=== PATIENT | male | born 1960 | race Caucasian/White ===

== ENCOUNTER 2017-04-05 17:44 | Emergency (ER) | payer MEDICAID ==
[~2017-04-05] VITALS: Ht 185.4 cm; Wt 95.3 kg
[2017-04-05 18:33] LABS: BASOPHILS % (AUTO) 1.2 % (0.0-2.0); EOSINOPHILS % (AUTO) 2.9 % (0.0-3.0); LYMPHOCYTES % (AUTO) 20.8 % (20.0-45.0); MEAN CORPUSCULAR HEMOGLOBIN 33.8 PG (27.0-31.0); MEAN CORPUSCULAR HGB CONC 35.8 G/DL (32.0-36.0); MEAN CORPUSCULAR VOLUME 95 FL (80-99); MEAN PLATELET VOLUME 5.3 FL (6.5-10.1); MONOCYTES % (AUTO) 6.6 % (1.0-10.0); NEUTROPHILS % (AUTO) 68.4 % (45.0-75.0); PLATELET COUNT 253 K/UL (150-450); RED BLOOD COUNT 4.71 M/UL (4.70-6.10); RED CELL DISTRIBUTION WIDTH 10.9 % (11.6-14.8); WHITE BLOOD COUNT 10.3 K/UL (4.8-10.8)
[2017-04-05 18:49] LABS: ACETAMINOPHEN < 10 ug/mL (10-30); ALANINE AMINOTRANSFERASE 15 U/L (3-41); ALBUMIN/GLOBULIN RATIO 1.6 (1.0-2.7); ALCOHOL < 10 mg/dL; ANION GAP 10 (5-15); ASPARTATE AMINO TRANSFERASE 15 U/L (5-40); CALCIUM 8.9 mg/dL (8.6-10.2); CARBON DIOXIDE 24 mEQ/L (20-30); CHLORIDE 101 mEQ/L (98-107); GLOMERULAR FILTRATION RATE > 60 mL/min (>60); HEMOLYSIS 11; POTASSIUM 3.7 mEQ/L (3.4-4.9); SODIUM 135 mEQ/L (135-145); TOTAL PROTEIN 6.8 g/dL (6.6-8.7)
[2017-04-05 18:57] VITALS: BP 121/84
[2017-04-05] MEDS ORDERED: Ketorolac 30mg Inj IV ONE (19:30)
--- NOTE | 2017-04-05 21:55 | Emergency Room Report ---
History of Present Illness General Chief Complaint: Behavioral Complaint Source: Medical Record, EMS (JAYLENE BANEGAS) Present Illness HPI The patient is a 56 yo M with a hx of bipolar disorder and schizophrenia presenting for feelings of depression. He states he stays at a local [facility] and [facility] facility and last saw his psychiatrist one week prior for routine follow up. He receives bi-monthly risperidone IM which he received at the visit last week. States that he is feeling loss and helpless. He denies using any drugs or alcohol. He denies hurting himself. He denies other symptoms including nausea, vomiting, fever, chills, shortness of breath, chest pain, dizziness (JAYLENE BANEGAS P.Kianna) Allergies: Coded Allergies: No Known Allergies (Unverified , 04/05/17) Patient History Past Medical History: see triage record Pertinent Family History: none Reviewed Nursing Documentation: PMH: Agreed, PSxH: Agreed (JAYLENE BANEGAS) Nursing Documentation-PMH Past Medical History: No History, Except For Hx Hypertension: Yes Hx Asthma: Yes Hx Diabetes: Yes History Of Psychiatric Problem: Yes (JAYLENE BANEGAS P.APhilomena) Review of Systems All Other Systems: negative except mentioned in HPI (JAYLENE BANEGAS P.APhilomena) Physical Exam Vital Signs Date Time Temp Pulse Resp B/P Pulse Ox O2 Delivery O2 Flow Rate FiO2 04/05/17 17:52 98.1 78 18 121/84 100 Room Air Sp02 EP Interpretation: reviewed, normal General Appearance: no apparent distress, alert, GCS 15, non-toxic Head: normocephalic, atraumatic Eyes: bilateral eye PERRL, bilateral eye normal inspection ENT: hearing grossly normal, normal pharynx, no angioedema, normal voice Neck: full range of motion, supple/symm/no masses Respiratory: chest non-tender, lungs clear, normal breath sounds, speaking full sentences Cardiovascular #1: regular rate, rhythm, no edema Musculoskeletal: back normal, gait/station normal, normal range of motion, non- tender, calf tenderness Neurologic: alert, oriented x3, responsive, motor strength/tone normal, sensory intact, speech normal Psychiatric: judgement/insight normal, memory normal, mood/affect normal, no suicidal/homicidal ideation Skin: normal color, no rash, warm/dry, well hydrated (JAYLENE BANEGAS) Medical Decision Making PA Attestation Dr. Riddle is my supervising physician. Patient management was discussed with my supervising physician (JAYLENE BANEGAS) Diagnostic Impression: Primary Impression: Behavioral disorder Additional Impression: Depression Qualified Codes: F32.9 - Major depressive disorder, single episode, unspecified ER Course The patient is a 56-year-old male with a history of schizophrenia and bipolar disorder presenting for depression Differential diagnoses considered but not limited to suicidal ideation, homicidal ideation, depression, anxiety, among others PE: vitals WNL. NAD A&Ox3 RRR Lungs CTA bilat All lab work is unremarkable. Patient is medically cleared. He is given IV Toradol for headache PET pending. Patient is resting comfortably and will be signed out to Dr. Martinez Laboratory Tests Test 04/05/17 18:10 04/05/17 18:20 Urine Opiates Screen Negative (NEGATIVE) Urine Barbiturates Screen Negative (NEGATIVE) Phencyclidine (PCP) Screen Negative (NEGATIVE) Urine Amphetamines Screen Negative (NEGATIVE) Urine Benzodiazepines Screen Negative (NEGATIVE) Urine Cocaine Screen Negative (NEGATIVE) Urine Marijuana (THC) Screen Negative (NEGATIVE) White Blood Count 10.3 K/UL (4.8-10.8) Red Blood Count 4.71 M/UL (4.70-6.10) Hemoglobin 15.9 G/DL (14.2-18.0) Hematocrit 44.5 % (42.0-52.0) Mean Corpuscular Volume 95 FL (80-99) Mean Corpuscular Hemoglobin 33.8 PG (27.0-31.0) H Mean Corpuscular Hemoglobin Concent 35.8 G/DL (32.0-36.0) Red Cell Distribution Width 10.9 % (11.6-14.8) L Platelet Count 253 K/UL (150-450) Mean Platelet Volume 5.3 FL (6.5-10.1) L Neutrophils (%) (Auto) 68.4 % (45.0-75.0) Lymphocytes (%) (Auto) 20.8 % (20.0-45.0) Monocytes (%) (Auto) 6.6 % (1.0-10.0) Eosinophils (%) (Auto) 2.9 % (0.0-3.0) Basophils (%) (Auto) 1.2 % (0.0-2.0) Sodium Level 135 mEQ/L (135-145) Potassium Level 3.7 mEQ/L (3.4-4.9) Chloride Level 101 mEQ/L (98-107) Carbon Dioxide Level 24 mEQ/L (20-30) Anion Gap 10 (5-15) Blood Urea Nitrogen 10 mg/dL (7-23) Creatinine 1.0 mg/dL (0.7-1.2) Estimate Glomerular Filtration Rate > 60 mL/min (>60) Glucose Level 122 mg/dL (74-106) H Calcium Level 8.9 mg/dL (8.6-10.2) Total Bilirubin 0.3 mg/dL (0.0-1.2) Aspartate Amino Transferase (AST) 15 U/L (5-40) Alanine Aminotransferase (ALT) 15 U/L (3-41) Alkaline Phosphatase 65 U/L (40-129) Total Protein 6.8 g/dL (6.6-8.7) Albumin 4.2 g/dL (3.5-5.2) Globulin 2.6 g/dL Albumin/Globulin Ratio 1.6 (1.0-2.7) Salicylates Level < 1 mg/dL (10-30) L Acetaminophen Level < 10 ug/mL (10-30) L Serum Alcohol < 10 mg/dL Lab Results Impression Unremarkable (JAYLENE BANEGAS P.APhilomena) ER Course Patient signed out to me. He felt depressed and possible suicidal thoughts. He said he fell better not. We'll discharge back to the [facility]. Denies any alcohol drugs. (JEFRY MARTINEZ M.D.) Last Vital Signs Date Time Temp Pulse Resp B/P Pulse Ox O2 Delivery O2 Flow Rate FiO2 04/05/17 18:57 98.1 78 18 121/84 100 Room Air Status: improved (JAYLENE BANEGAS P.APhilomena) Status: improved (JEFRY MARTINEZ M.D.) Disposition: HOME, SELF-CARE Condition: Stable Signed Out To: Dr. Martinez (JAYLENE BANEGAS P.A.) Referrals: [facility],REFERRING (PCP) Additional Instructions: followup with your Dr. in 7 days. Return if symptom worsen. JAYLENE BANEGAS Apr 05, 2017 21:55 JEFRY MARTINEZ M.D. Apr 05, 2017 23:44
[2017-04-05 23:13] VITALS: BP 141/93
[2017-04-06 00:05] VITALS: BP 128/82
== END 2017-04-06 00:07 | disposition home or self-care (01) ==
LOC: EDBD 17:44 → EMR 17:59
DX: F91.9 Conduct disorder, unspecified (principal); F32.9 Major depressive disorder, single episode, unspecified; I10 Essential (primary) hypertension; E11.9 Type 2 diabetes mellitus without complications
CPT/HCPCS: 36415; 80053; 80300; 80329; 85025; 96374; 99284; J1885